=== PATIENT | female | born 1965 | race Hispanic/Latino ===

== ENCOUNTER 2017-04-12 16:41 | Inpatient (IN) | payer BC, OTHER ==
[2017-04-12] MEDS ORDERED: Sodium Chloride 0.9% 1,000 ML IV ONE (18:53)
[2017-04-12 19:20] LABS: BASO # 0.1 K/uL (0.0-0.2); BASO % 0.5 % (0.0-2.0); EOS # 0.2 K/uL (0.0-0.7); EOS % 1.8 % (0.0-4.0); HEMOGLOBIN 14.9 g/dL (11.0-16.0); LYMPH # 2.5 K/uL (1.0-4.3); LYMPH % 20.6 % (20.0-40.0); MEAN CELL VOLUME 90.8 fL (81.0-99.0); MEAN CORPUSCULAR HEMOGLOBIN 30.4 pg (27.0-31.0); MEAN CORPUSCULAR HGB CONC 33.4 g/dL (33.0-37.0); MEAN PLATELET VOLUME 8.6 fL (7.2-11.7); MONO # 0.7 K/uL (0.0-0.8); NEUT # 8.7 K/uL (1.8-7.0); NEUT % 71.1 % (50.0-75.0); RBC 4.92 Mil/uL (3.80-5.20); RED CELL DISTRIBUTION WIDTH 14.1 % (11.5-14.5); WHITE BLOOD COUNT 12.3 K/uL (4.8-10.8)
[2017-04-12 19:30] LABS: ALB/GLOB RATIO 1.1 (1.0-2.1); ALBUMIN 4.3 g/dL (3.5-5.0); ALT/SGPT 22 U/L (9-52); AST/SGOT 18 U/L (14-36); BLOOD UREA NITROGEN 10 mg/dL (7-17); CALCIUM 8.9 mg/dl (8.6-10.4); GFR AFRICAN-AMERICAN > 60; GFR NON-AFRICAN AMERICAN > 60
--- NOTE | 2017-04-12 20:32 | CT ---
EXAM: CT Head Without Intravenous Contrast CLINICAL HISTORY: 51 years old, female; Signs and symptoms; Dizziness; Additional info: Dizziness. Headache. TECHNIQUE: Axial computed tomography images of the head/brain without intravenous contrast. All CT scans at this facility use one or more dose reduction techniques, viz.: automated exposure control; ma/kV adjustment per patient size (including targeted exams where dose is matched to indication; i.e. head); or iterative reconstruction technique. COMPARISON: No relevant prior studies available. FINDINGS: Brain: No intracranial hemorrhage. No mass. Few scattered foci of decreased attenuation within periventricular/subcortical white matter. No definite edema. Ventricles: No hydrocephalus. Bones/joints: No acute fracture. Soft tissues: Unremarkable. Sinuses: Scattered minimal mucosal thickening. Mastoid air cells: No mastoid effusion. Orbits: Unremarkable as visualized. IMPRESSION: 1. Nonspecific white matter changes. Acute infarction may be CT occult within first 24 hours. If a focal deficit persists, consider followup CT or MRI for further evaluation. 2. Incidental/non-acute findings are described above.
[2017-04-12] MEDS ORDERED: Potassium Chloride 20 mEq ER Tab PO STA (21:18)
[2017-04-12] MEDS ORDERED: Potassium Chloride 20 mEq ER Tab PO ONE (21:34)
--- NOTE | 2017-04-12 22:15 | C.PDOC ---
Time Seen by Provider: 04/12/17 18:00 Chief Complaint (Nursing): Dizziness/Lightheaded History Per: Patient, Family Onset/Duration Of Symptoms: Days, Waxing/Waning, Persistent Current Symptoms Are (Timing): Still Present Associated Symptoms Preceding Syncopal Episode: Vertigo Worse With Change In Head Position Fall Associated With With Symptoms: No Severity: Moderate Additional History Per: Prior Records - Symptoms Of CVA Recent Head Trauma: No Past Medical History Reviewed: Historical Data, Nursing Documentation, Vital Signs Vital Signs: Last Vital Signs Temp 98.1 F 04/12/17 19:55 Pulse 85 04/12/17 19:55 Resp 14 04/12/17 19:55 BP 105/66 04/12/17 19:55 Pulse Ox 98 04/12/17 22:18 - Medical History PMH: HTN Family History: States: Unknown Family Hx - Social History Hx Alcohol Use: No Hx Substance Use: No Review Of Systems Except As Marked, All Systems Reviewed And Found Negative. Constitutional: Negative for: Fever, Weakness Eyes: Negative for: Vision Change ENT: Negative for: Ear Pain, Ear Discharge Cardiovascular: Negative for: Chest Pain Respiratory: Negative for: Shortness of Breath Gastrointestinal: Positive for: Nausea, Vomiting. Negative for: Abdominal Pain , Diarrhea Musculoskeletal: Negative for: Back Pain Skin: Negative for: Rash Neurological: Positive for: Headache (occipital), Dizziness. Negative for: Weakness, Numbness, Seizures Physical Exam - Physical Exam Appears: Non-toxic, No Acute Distress Skin: Normal Color, Warm, Dry, No Rash Head: Atraumatic, Normacephalic Eye(s): bilateral: PERRL, Other (Nystagmus) Ear(s): Bilateral: Normal Neck: Normal ROM, Supple Cardiovascular: Rhythm Regular Respiratory: Normal Breath Sounds, No Accessory Muscle Use Gastrointestinal/Abdominal: Soft, No Tenderness Back: No CVA Tenderness Extremity: Normal ROM Neurological/Psych: Oriented x3, Normal Speech, Normal Motor, Normal Sensation Gait: Unable To Assess ED Course And Treatment - Laboratory Results Result Diagrams: 04/12/17 19:15 04/12/17 19:15 Interpretation Of Abnormal: Mild hypokalemia O2 Sat by Pulse Oximetry: 98 Pulse Ox Interpretation: Normal - CT Scan/US CT head Other Rad Studies (CT/US): Read By Radiologist, Radiology Report Reviewed CT/US Interpretation: IMPRESSION: 1. Nonspecific white matter changes. Acute infarction may be CT occult within. first 24 hours. If a focal deficit persists, consider followup CT or MRI for. further evaluation. 2. Incidental/ non-acute findings are described above. Progress Note: After meds and observation, pt is still symptomatic and unable to ambulate with a steady gait. Progress - Interventions Interventions:: Observation, Intravenous fluid - Medications Administered Oral: Other (Meclizine) Intravenous: Antiemetic - Data Reviewed Data Reviewed: Lab, Diagnostic imaging, Old records - Patient Status Patient status: Partially improved - Continuity of Care Discussed patient case with:: Patient, Family-HIPPA compliant, ED Nurse, PMD - Patient Plan Patient Plan: Admission Disposition Discussed With Dr.: Gabriel Underwood (PMD) Comment: He wants to admit her to the hospital on his service for further evaluation and treatment. He wants to consult Dr. Giovani Rodriguez for neurology. Doctor Will See Patient In The: Hospital Counseled Patient/Family Regarding: Studies Performed, Diagnosis - Disposition Disposition: HOSPITALIZED Disposition Time: 23:00 Condition: FAIR - Clinical Impression Clinical Impression: Constant vertigo
[2017-04-13] MEDS: Dextrose 5%/0.45% NS 1,000 ML IV SCH ×3 (01:30→21:00)
[2017-04-13 01:45] VITALS: RESP 20
[2017-04-13] MEDS: Enoxaparin 40 mg Syringe SC SCH (11:00)
--- NOTE | 2017-04-13 11:47 | CP.PCM.PN ---
Subjective - Date & Time of Evaluation Date of Evaluation: 04/13/17 Time of Evaluation: 11:46 - Subjective Subjective: feels better.seen by dr malloy.normal carotids. Objective - Vital Signs/Intake and Output Vital Signs (last 24 hours): Temp Pulse Resp BP Pulse Ox 98.8 F 80 20 126/82 96 04/13/17 08:12 04/13/17 08:12 04/13/17 08:12 04/13/17 08:12 04/13/17 08:12 Intake and Output: 04/13/17 04/13/17 06:59 18:59 Intake Total 550 Balance 550 - Medications Medications: Current Medications Acetaminophen (Tylenol 325mg Tab) 650 mg PO BID PRN PRN Reason: Pain, moderate (4-7) Last Admin: 04/13/17 01:42 Dose: 650 mg Amlodipine Besylate (Norvasc) 5 mg PO DAILY [facility] Last Admin: 04/13/17 09:01 Dose: 5 mg Enoxaparin Sodium (Lovenox) 40 mg SC DAILY [facility] Last Admin: 04/13/17 11:00 Dose: 40 mg Dextrose/Sodium Chloride (Dextrose 5%/0.45% Ns 1000 Ml) 1,000 mls @ 100 mls/hr IV .Q10H [facility] Last Admin: 04/13/17 11:04 Dose: 100 mls/hr Meclizine HCl (Antivert) 25 mg PO TID PRN PRN Reason: Dizziness Last Admin: 04/13/17 09:01 Dose: 25 mg Ondansetron HCl (Zofran Inj) 4 mg IVP Q8 PRN PRN Reason: Nausea/Vomiting Pneumococcal Polyvalent Vaccine (Pneumovax 23 Vaccine) 0.5 ml SC .ONCE ONE Stop: 04/15/17 10:01 - Labs Labs: 04/12/17 19:15 04/12/17 19:15 - Constitutional Appears: No Acute Distress - Eye Exam Eye Exam: Normal appearance - ENT Exam ENT Exam: Mucous Membranes Moist - Respiratory Exam Respiratory Exam: Clear to Ausculation Bilateral - Cardiovascular Exam Cardiovascular Exam: REGULAR RHYTHM - GI/Abdominal Exam GI & Abdominal Exam: Soft - Neurological Exam Neurological Exam: Alert, Oriented x3 Assessment and Plan - Assessment and Plan (Free Text) Assessment: will obtain abdominal ultrasound,vomiting ++.lbs are ok.check k
[2017-04-13 11:53] LABS: ALB/GLOB RATIO 1.1 (1.0-2.1); ALBUMIN 3.8 g/dL (3.5-5.0); ALT/SGPT 21 U/L (9-52); AST/SGOT 17 U/L (14-36); BLOOD UREA NITROGEN 10 mg/dL (7-17); CALCIUM 8.3 mg/dl (8.6-10.4); GFR AFRICAN-AMERICAN > 60; GFR NON-AFRICAN AMERICAN > 60
[2017-04-13] MEDS ORDERED: Gadodiamide 287 MG/ML VIAL (15ML) IV ONE (12:27)
--- NOTE | 2017-04-13 12:44 | VASCLAB ---
PROCEDURE: HISTORY: persistent vertigo COMPARISON: None available. TECHNIQUE: Grayscale and duplex Doppler evaluation of the cervical carotid and vertebral arteries were performed. The common carotid, carotid bifurcations and cervical Internal Carotid Artery (ICA) and proximal External Carotid Artery (ECA) were evaluated. The vertebral arteries were evaluated for gross patency and flow direction. Report prepared by Eron Montanez, BS, RVT FINDINGS: RIGHT CAROTID ARTERIES: 1. Common Carotid Artery: No significant focal plaque formation of the right common carotid artery. Maximum Peak Systolic velocity: 75 cm/sec: End-diastolic velocity 25 cm/sec. 2. Carotid Bifurcation: plaque formation. Maximum Peak Systolic velocity: 74 cm/sec: End-diastolic velocity 26 cm/sec. 3. Internal Carotid Artery: Plaque description: 3.1. Proximal Segment: Peak systolic velocity 78 cm/sec: End-diastolic velocity 29 cm/sec - % stenosis 0-15% 3.2. Middle Segment: Peak systolic velocity 47 cm/sec: End-diastolic velocity 21 cm/sec - % stenosis 0-15% 3.3. Distal Segment: Peak systolic velocity 54 cm/sec: End-diastolic velocity 23 cm/sec - % stenosis 0-15% 4. External Carotid Artery: No significant focal plaque formation. Peak systolic velocity 71 cm/sec 5. ICA/CCA Ratio: 1.0 LEFT CAROTID ARTERIES: 1. Common Carotid Artery: No significant focal plaque formation of the left common carotid artery. Maximum Peak Systolic velocity: 84 cm/sec: End-diastolic velocity 21 cm/sec. 2. Carotid Bifurcation: plaque formation. Maximum Peak Systolic velocity: 57 cm/sec: End-diastolic velocity 17 cm/sec. 3. Internal Carotid Artery: Plaque description: 3.1. Proximal Segment: Peak systolic velocity 86 cm/sec: End-diastolic velocity 30 cm/sec - % stenosis 0-15% 3.2. Middle Segment: Peak systolic velocity 61 cm/sec: End-diastolic velocity 24 cm/sec - % stenosis 0-15% 3.3. Distal Segment: Peak systolic velocity 84 cm/sec: End-diastolic velocity 29 cm/sec - % stenosis 0-15% 4. External Carotid Artery: No significant focal plaque formation. Peak systolic velocity 81 cm/sec 5. ICA/CCA Ratio: 1.0 VERTEBRAL ARTERIES: 1. Right Vertebral Artery: The right vertebral artery flow direction is antegrade. 2. Left Vertebral Artery: The left vertebral artery flow direction is antegrade. OTHER FINDINGS: 1. Right Brachial Blood pressure: 134 mmHg. 2. Left Brachial Blood pressure: 126 mmHg. IMPRESSION: RIGHT: Duplex scan does not suggest hemodynamically significant stenosis of the right extracranial carotid arteries. LEFT: Duplex scan does not suggest hemodynamically significant stenosis of the left extracranial carotid arteries.
--- NOTE | 2017-04-13 13:07 | CON ---
DATE: NEUROLOGY CONSULTATION REASON FOR CONSULTATION: Dizziness. HISTORY OF PRESENT ILLNESS: The patient is a 51-year-old female who has been asked for evaluation of dizziness. The patient started experiencing dizziness on April 04. As she was coming down the stairs, she started getting dizzy, which is described as spinning sensation associated with vomiting. She denied any focal weakness in arms or legs. She went to the emergency room where she was evaluated, blood pressure was controlled and she was sent home. She saw her primary care physician a few days ago and was given meclizine. She has been taking it as needed. She did not have any severe dizziness until yesterday, when again she started experiencing severe dizziness, which is described as spinning sensation associated with vomiting. She did not have any focal weakness in arms or legs. She denies any loss of hearing or ringing in the ears. When she turns, her head suddenly or sometimes when she moves it off the bed, she gets dizzy. Denies any focal weakness in arms or legs. Denies any loss of vision. REVIEW OF SYSTEMS: Positive for dizziness. Denies any headache, chest pain, shortness of breath, abdominal pain, constipation, diarrhea, dysuria, pyuria, cough or sputum production. PAST MEDICAL HISTORY: Includes hypertension. MEDICATIONS AT HOME: Included amlodipine and meclizine. ALLERGIES: NO KNOWN DRUG ALLERGIES. SOCIAL HISTORY: Denies smoking, use of alcohol, or illicit drugs. FAMILY HISTORY: Reviewed and noncontributory to the case. PHYSICAL EXAMINATION: GENERAL: The patient is a middle-aged and pleasant female, lying on the bed, in no acute distress. VITAL SIGNS: Blood pressure is 126/82, heart rate is 80 per minute, breathing at a rate of 16 per minute, temperature is 98.8 degrees Fahrenheit. HEENT: Head is normocephalic and atraumatic. NECK: Supple. There are no carotid bruits. LUNGS: Clear. CARDIOVASCULAR SYSTEM: S1, S2 audible. No murmurs. ABDOMEN: Soft, nontender. Bowel sounds present. NEUROLOGIC: Mental status: Patient is awake, alert; oriented to time, place and person. Speech is fluent. Naming and repetition is normal. Memory and cognition are intact. Cranial nerves: Pupils are 3 mm bilaterally reactive to light. Visual kohli are full. Extraocular movements are intact. There is no facial asymmetry. Palate is upgoing bilaterally and tongue is midline. Motor Examination: Tone is normal. Power is 5/5 bilaterally in all extremities. Reflexes +2 and symmetrical. Plantars are downgoing bilaterally. Cerebellar Examination: [id number] shows no dysmetria. Gait is deferred at the moment. Sensory examination: Intact to soft touch and pinprick bilaterally. LABORATORY DATA: Reviewed. Shows WBC of 12.3, hemoglobin of 14.9, hematocrit 44.7 and platelets of 502,000. Sodium is 138, potassium 3.1, chloride 101, carbon dioxide 23, BUN of 10, creatinine of 0.8 and glucose of 81. She had a CT scan of the head done, which is negative for any acute intracranial pathology. IMPRESSION: Dizziness, which appears to be secondary to labyrinthine dysfunction, possibly vestibular neuronitis. RECOMMENDATIONS: 1. The patient to have MRI of the brain without contrast. 2. The patient also to have an electroencephalogram. 3. The patient to be continued on meclizine. 4. I will also add low dose of lorazepam 0.5 mg twice a day to see if that helps her dizziness. 5. The patient to have physical therapy for balance gait. 6. The patient is advised to increase activity as she tolerates. 7. Please continue supportive care and other treatment. Thank you for the opportunity to participate in the care of this patient. Ovidio Rodriguez MD
--- NOTE | 2017-04-13 14:31 | MRI ---
PROCEDURE: MRI brain dated 04/13/2017 HISTORY: Persistent vertigo COMPARISON: Comparison made with CT scan brain dated 04/12/2017. TECHNIQUE: Multiplanar, multisequence MR images of the brain were obtained with and without intravenous contrast enhancement. FINDINGS: HEMORRHAGE: No acute parenchymal, subarachnoid or extra-axial hemorrhage. No evidence of hemosiderin deposition identified on gradient echo weighted sequence. DWI: No evidence of an acute or early subacute infarction seen on diffusion imaging. . BRAIN PARENCHYMA: . Minor slightly confluent nonenhancing prolonged T2 signal changes seen within perifrontal horn white matter likely representing chronic sequela of small vessel disease. . Additionally, there are multiple of small round low-attenuation foci seen scattered about deep and subcortical white matter as well as both basal nuclei. Changes most likely represent minor chronic sequela of small vessel disease however differential diagnosis would include sequela of old trauma, migraine headaches, infectious/inflammatory etiologies. Atypical presentation of a demyelinating disease process would be less likely in the absence of a pertinent clinical history however not completely excluded. . Note also made of a tiny focus of increased T2 signal in the right cerebral peduncle which is seen only on axial T2 sequence which could represent dilated perivascular space noted tiny chronic lacune not completely excluded. Ventricular and sulcal size are within range of normal for this patient's stated age. ENHANCEMENT: There is a faint somewhat linear/cylindrical blush like area of enhancement in the region of the right forceps major that is of uncertain etiology however could conceivably represent a small vascular lesion such is a capillary telangiectasia or possibly an atypical developmental venous anomaly. (See axial post-contrast image 10-11). Ventricles No obstructive hydrocephalus. CRANIUM: There are no gross calvarial abnormalities are identified. . ORBITS: Orbits and contents grossly unremarkable. PARANASAL SINUSES/MASTOIDS: Visualized paranasal and mastoid air complexes are clear. VASCULAR SYSTEM: The visualized major vascular flow voids at skull base patent. OTHER FINDINGS: None . IMPRESSION: No acute intracranial hemorrhage or infarct. . There is a faint at somewhat linear/cylindrical area of enhancement in the right forceps major that is of uncertain etiology ; rule out small vascular lesion such as capillary telangiectasia or possibly an atypical DVA -venous angioma Minor confluent periventricular white matter changes with multiple more discrete focal areas of nonenhancing increased T2 signal scattered about the deep and subcortical white matter both cerebral hemispheres. Changes may represent mild chronic sequela of small vessel disease. See above discussion for additional details and differential diagnostic considerations
--- NOTE | 2017-04-13 14:31 | US ---
HISTORY: vomiting, abd pain COMPARISON: None available. TECHNIQUE: Sonographic evaluation of the abdomen. FINDINGS: LIVER: Measures 16.8 cm in sagittal dimension. Echogenic liver may be seen in setting of hepatic parenchymal disease or fatty infiltration. 2.9 x 2.3 x 2.7 cm anechoic avascular lesion within the left hepatic lobe appears consistent with a cyst. The main portal vein appears patent with normal directional flow. No intrahepatic bile duct dilatation. GALLBLADDER: No gallstones. No gallbladder wall thickening. Negative sonographic Mcduffie's sign as assessed by the material manager. COMMON BILE DUCT: Measures 2 mm. PANCREAS: Not well visualized. RIGHT KIDNEY: Measures 11.0 x 4.7 x 4.5 cm. No obstructing calculus or hydronephrosis identified. LEFT KIDNEY: Measures 11.1 x 4.8 x 4.7 cm. No obstructing calculus or hydronephrosis identified. SPLEEN: Measures approximately 14 cm. AORTA: Limited views appear unremarkable. IVC: Limited views appear unremarkable. OTHER FINDINGS: None. IMPRESSION: Left hepatic lobe cyst. Echogenic liver may be seen in setting of hepatic parenchymal disease or fatty infiltration.
[2017-04-14] MEDS: Dextrose 5%/0.45% NS 1,000 ML IV SCH ×2 (08:00→09:44)
[2017-04-14] MEDS: Enoxaparin 40 mg Syringe SC SCH (09:44)
--- NOTE | 2017-04-14 11:07 | PN ---
DATE: NEUROLOGY PROGRESS NOTE SUBJECTIVE: The patient is lying on the bed, in no acute distress. She is feeling better than yesterday; however, still getting some dizzy when she tries to walk. PHYSICAL EXAMINATION: VITAL SIGNS: Her blood pressure is 130/86, heart rate is 79 per minute, breathing at a rate of 16 per minute, temperature of 98.3 degrees Fahrenheit. HEENT: Head is normocephalic, atraumatic. NECK: Supple. There are no carotid bruits. LUNGS: Clear. CARDIOVASCULAR SYSTEM: S1 and S2 are audible. No murmurs. ABDOMEN: Soft and nontender. Bowel sounds are present. NEUROLOGY: Mental status: The patient is awake, alert, oriented to time, place, person. Speech is fluent. Naming and repetition are normal. Memory and cognition are intact. Cranial nerve examination: Pupils are 3 mm bilaterally reactive to light. Visual kohli are full. Extraocular movements are intact. There is no facial asymmetry. Palate is upgoing bilaterally and tongue is midline. Motor examination: Tone is normal. Power is 5/5 bilaterally in all extremities. Plantars downgoing bilaterally. LABORATORY DATA: Labs reviewed. MRI of the brain: No acute intracranial hemorrhage or infarct. There is a faint somewhat linear/cylindrical area of enhancement in the right forceps major that is of uncertain etiology. Rule out small vessel lesion. Suggest capillary telangiectasia or possible atypical venous angioma. Minor confluent periventricular white matter changes. IMPRESSION: Dizziness, which appears to be secondary to labyrinthine dysfunction, possible vestibular neuronitis. RECOMMENDATION: 1. The patient had an electroencephalogram. We will follow up on that. 2. The patient to be continued on meclizine. 3. We will consider restarting lorazepam if dizziness does not respond to meclizine. 4. If the patient's dizziness remains stable and she is able to get up and walk, then she may be discharged with outpatient followup. Thank you for the opportunity to participate in the care of this patient. Ovidio Rodriguez MD
[2017-04-14 16:01] VITALS: BP 144/89; PULSE 71; TEMP 98.8
[2017-04-14 16:02] VITALS: O2SAT 98
--- NOTE | 2017-04-14 17:44 | CP.PCM.PN ---
Subjective - Date & Time of Evaluation Date of Evaluation: 04/14/17 Time of Evaluation: 17:42 - Subjective Subjective: headaches & constipation Objective - Vital Signs/Intake and Output Vital Signs (last 24 hours): Temp Pulse Resp BP Pulse Ox 98.8 F 71 20 144/89 98 04/14/17 15:15 04/14/17 15:15 04/14/17 15:15 04/14/17 15:15 04/14/17 15:29 Intake and Output: 04/14/17 04/14/17 06:59 18:59 Intake Total 1000 1160 Balance 1000 1160 - Medications Medications: Current Medications Acetaminophen (Tylenol 325mg Tab) 650 mg PO Q6 PRN PRN Reason: Headache Last Admin: 04/14/17 16:37 Dose: 650 mg Amlodipine Besylate (Norvasc) 5 mg PO DAILY [facility] Last Admin: 04/14/17 09:44 Dose: 5 mg Docusate Sodium (Colace) 100 mg PO TID PRN PRN Reason: Constipation Enoxaparin Sodium (Lovenox) 40 mg SC DAILY [facility] Last Admin: 04/14/17 09:44 Dose: 40 mg Dextrose/Sodium Chloride (Dextrose 5%/0.45% Ns 1000 Ml) 1,000 mls @ 100 mls/hr IV .Q10H [facility] Last Admin: 04/14/17 09:44 Dose: 100 mls/hr Meclizine HCl (Antivert) 25 mg PO TID PRN PRN Reason: Dizziness Last Admin: 04/14/17 09:44 Dose: 25 mg Ondansetron HCl (Zofran Inj) 4 mg IVP Q8 PRN PRN Reason: Nausea/Vomiting Pneumococcal Polyvalent Vaccine (Pneumovax 23 Vaccine) 0.5 ml SC .ONCE ONE Stop: 04/15/17 10:01 - Labs Labs: 04/12/17 19:15 04/13/17 11:24 - Constitutional Appears: No Acute Distress - Eye Exam Eye Exam: Normal appearance - Neck Exam Neck Exam: Normal Inspection - Respiratory Exam Respiratory Exam: Clear to Ausculation Bilateral - Cardiovascular Exam Cardiovascular Exam: REGULAR RHYTHM - GI/Abdominal Exam GI & Abdominal Exam: Soft - Extremities Exam Extremities Exam: absent: Pedal Edema - Neurological Exam Neurological Exam: Alert, Oriented x3 Assessment and Plan - Assessment and Plan (Free Text) Assessment: normal abdominal ultrasound & mri. ent eval.d/c home
--- NOTE | 2017-04-15 04:24 | CON ---
DATE: 04/14/2017 REQUESTING PHYSICIAN: Gabriel Underwood MD REASON FOR CONSULTATION: Vertigo. HISTORY OF PRESENT ILLNESS: This is a 51-year-old female with a 11-day history of dizziness with vertigo, is on and off, [id number] in intensity, lasted for minutes to hours. There is no hearing loss or ringing in the ear. PAST MEDICAL HISTORY: As noted in the chart by me. MEDICATIONS: As noted in the chart by me. ALLERGIES: NO KNOWN DRUG ALLERGIES. PHYSICAL EXAMINATION: HEAD: Atraumatic, normocephalic. FACE: Good facial movements bilaterally. CONSTITUTIONAL: Well fed, well nourished. COMMUNICATION: Communicates well and appropriately. EXTERNAL NOSE AND EARS: No masses. No lesions. No erythema. No edema. INTERNAL NOSE: Deviated septum. No masses. No lesions. No erythema. No edema. ORAL CAVITY AND OROPHARYNX: No masses. No lesions. No erythema. No edema. EARS: TM intact with no fluid behind it. NECK: Supple. THYROID: No thyromegaly. No goiter. LYMPH NODES: No lymphadenopathy of the neck. ASSESSMENT: 1. Dizziness. 2. Vertigo. 3. Deviated septum. PLAN: Follow up as an outpatient for VNG. Werner Gomez MD
--- NOTE | 2017-04-15 08:07 | DS ---
HISTORY OF PRESENT ILLNESS: This is a 52-year-old female, who was brought in with headaches, not feeling well, vomited several times, and had a near-syncope. She came to the hospital. Routine labs were acceptable. MRI of the head was unremarkable. CT of the head was unremarkable. Abdominal ultrasound was unremarkable. She was treated conservatively. She was advised to follow up with ENT doctor as an outpatient. The patient was seen by Dr. Rodriguez during hospitalization. FINAL DIAGNOSES: Probably syncope-related ear problems, hypertension, abdominal pain, and vomiting. Gabriel Underwood MD
[2017-04-15] MEDS ORDERED: Pneumococcal 23-Valent Vaccine SC ONE (10:00)
--- NOTE | 2017-04-15 10:27 | EEG ---
DATE: This is an EEG report. INTRODUCTION: This is a digitally recorded EEG monitoring using the standard EEG montages. BACKGROUND RHYTHM: The EEG shows a background activity of 9 Hz to 10 Hz alpha activity in the parietooccipital region. The EEG activity is bilaterally symmetrical and synchronous. There is attenuation of the background activity on eye opening. Drowsiness was noted by slowing of the background activity. ABNORMAL POTENTIALS: No spike, sharp waves or focal slowing was seen. PHOTIC STIMULATION AND HYPERVENTILATION: Photic stimulation did not reveal any abnormality. Hyperventilation was not performed. IMPRESSION: Normal electroencephalogram. No epileptiform activity is seen in this electroencephalogram recording. Ovidio Rodriguez MD
== END 2017-04-14 19:34 | disposition home or self-care (01) | DRG 149 ==
LOC: C.ER 16:41 → C.9E 23:12 → C.3T 23:47 → C.9E 04-13 00:10 → C.3T 04-13 00:24
PROVIDERS: ADMIT Internal Medicine Cardiovascular Disease; ATTEND Internal Medicine Cardiovascular Disease
DX: H83.2X9 Labyrinthine dysfunction, unspecified ear (principal); I10 Essential (primary) hypertension; H81.20 Vestibular neuronitis, unspecified ear; J34.2 Deviated nasal septum; K59.00 Constipation, unspecified

== ENCOUNTER 2018-07-14 09:24 | Outpatient (CLI) | payer BC | END 2018-07-14 09:25 | disposition home or self-care (01) | LOC: C.VASC 09:24 ==

== ENCOUNTER 2018-07-19 15:42 | Outpatient (CLI) | payer BC | END 2018-07-19 15:43 | disposition home or self-care (01) | LOC: C.CTH 15:42 ==

== ENCOUNTER 2018-07-28 07:49 | Outpatient (CLI) | payer BC | END 2018-07-28 07:50 | disposition home or self-care (01) | LOC: C.CARD 07:49 | DX: R06.02 Shortness of breath (principal); I10 Essential (primary) hypertension ==

== ENCOUNTER 2018-08-03 08:05 | Outpatient (CLI) | payer BC | END 2018-08-03 08:06 | disposition home or self-care (01) | LOC: C.LAB 08:05 ==

== ENCOUNTER 2018-08-04 08:12 | Outpatient (CLI) | payer BC | END 2018-08-04 08:13 | disposition home or self-care (01) | LOC: C.PAT 08:12 | DX: I73.9 Peripheral vascular disease, unspecified (principal) ==

== ENCOUNTER 2018-08-09 07:00 | Observation (INO) | payer BC ==
[2018-08-03 08:55] VITALS: BMI 30.9
[2018-08-09] MEDS ORDERED: HEPARIN NS IV ONE (07:48)
[2018-08-09] MEDS ORDERED: Iodixanol 320 MG/ML 200 ML BOTTLE IV ONE (07:48)
[2018-08-09] MEDS ORDERED: ceFAZolin 1 gm in NS 2 GM/200 ML BAG IVPB ONE (07:49)
[2018-08-09] MEDS ORDERED: Midazolam 2 MG/2 ML VIAL ONE ×3 (08:43→10:33)
[2018-08-09] MEDS ORDERED: Lidocaine Hydrochloride 20 ML INJ ONE (08:47)
[2018-08-09] MEDS ORDERED: Propofol 10 mg/ml Inj (20 ML) ONE (08:48)
[2018-08-09] MEDS ORDERED: Lidocaine Hydrochloride 5 ML INJ ONE (08:48)
--- NOTE | 2018-08-09 11:25 | PCM.SURG1 ---
Surgeon's Initial Post Op Note - Surgeon's Notes Surgeon: Dr. Acosta Wheat Combine Driver: Talat [email or web address] Type of Anesthesia: IV Sedation Anesthesia Administered By: Dr. 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
[2018-08-09] MEDS ORDERED: Sodium Chloride 0.9% 500 ML IV ONE ×2 (12:28→14:01)
[2018-08-09] MEDS ORDERED: Sodium Chloride 0.9% 1,000 ML IV ONE (13:00)
--- NOTE | 2018-08-09 17:22 | RAD ---
Date of service: 08/09/2018 PROCEDURE: Intraoperative Fluoroscopy. HISTORY: DVT FINDINGS: Fluoroscopic assistance was provided for arteriography. Total fluoroscopic time (continuous mode) utilized during the procedure 1358.2 seconds. Total exam DLP: 756.33 (mGy). Please refer to the operative report from YONATAN Rodriguez.
[2018-08-09] MEDS: Lactated Ringer's 1,000 ML IV SCH (18:00)
[2018-08-09 19:33] VITALS: RESP 20
[2018-08-09] MEDS ORDERED: Cyproheptadine 2 mg Tab PO SCH (22:00)
[2018-08-10] MEDS: Lactated Ringer's 1,000 ML IV SCH (02:13)
--- NOTE | 2018-08-10 06:31 | OP ---
PROCEDURE DATE: 08/09/2018 PREOPERATIVE DIAGNOSES: Ulceration of right fifth toe, aortic occlusion, bilateral common iliac artery disease. PROCEDURES: Aortofemoral angiogram with 2 punctures, right common femoral artery, left common femoral artery using ultrasound-guidance micropuncture technique. Then balloon angioplasty of the right common iliac artery and deployment of a 7 x 59 VBX stent in the right common iliac artery. At the end of the procedure, there was reservation flow of all collateral seen as well as preservation of both internal iliac arteries. We were unable to cross the lesion successfully, re-entering to the abdominal aorta. SURGEON: Elgin Acosta Jr., MD DESCRIPTION OF PROCEDURE: The patient was given local anesthesia using the ultrasound-guidance and micropuncture technique. The right common femoral artery was punctured. Under the fluoroscopic control, the guidewire was advanced centrally. With variety of maneuvers and manipulation, we eventually were able to pass the catheter into the infrarenal abdominal aorta. We then placed a 5-Ethiopian sheath here, placed a catheter and carried out the angiogram. Due to some limitations with the equipment, we were unable to obtain sequential films all the way down, but we did eventually get these pictures isolated and these show that there was an occlusion of the infrarenal aorta at the bifurcation with reconstitution of the right common iliac artery above its bifurcation. Then, on the left side, the artery was completely occluded with reconstitution down to the level of the bifurcation. Below this, the common femoral artery and superficial femoral arteries were widely patent. It was difficult to obtain pictures on the right side below the knee, but it appeared that the posterior tibial artery was occluded in its distal segment and the dorsalis pedis was the major vessel into the foot. The patient was given intravenous antibiotics, local anesthesia using ultrasound guidance and micropuncture technique. The right common femoral was punctured. We then similar measure on the other side. Despite a variety of wires, techniques and maneuvers, we were unable to re-enter in the lumen on the left side. We then abandoned this and deployed in a 7 x 59 VBX stent on the right side from the distal aorta to the level of the common iliac artery bifurcation. This was with excellent cosmetic results. We attempted to deploy the Perclose device in the right groin which was unsuccessful. We then checked with ultrasound there was great pulsatile flow throughout this region. On the left side, we removed the 5-Ethiopian sheath and did not use the closure device. Pictures obtained. OPERATION CARRIED OUT: Aortofemoral angiogram with 2 punctures and then right common iliac artery VBX stent. Unable to cross the left-sided lesion. Afrin was given during the procedure and was not reversed until the end. Elgin Acosta Jr., MD
[2018-08-10 08:04] VITALS: BP 115/77; PULSE 87; TEMP 99.4; O2SAT 94
[2018-08-10 08:27] LABS: BASO # 0.1 K/uL (0.0-0.2); BASO % 0.7 % (0.0-2.0); EOS # 0.2 K/uL (0.0-0.7); EOS % 2.5 % (0.0-4.0); LYMPH # 1.1 K/uL (1.0-4.3); LYMPH % 11.8 % (20.0-40.0); MEAN CORPUSCULAR HEMOGLOBIN 30.9 pg (27.0-31.0); MEAN CORPUSCULAR HGB CONC 33.9 g/dL (33.0-37.0); MEAN PLATELET VOLUME 8.5 fL (7.2-11.7); MONO # 0.6 K/uL (0.0-0.8); MONO % 6.9 % (0.0-10.0); NEUT # 6.9 K/uL (1.8-7.0); NEUT % 78.1 % (50.0-75.0); RBC 4.2 Mil/uL (3.80-5.20); RED CELL DISTRIBUTION WIDTH 13.7 % (11.5-14.5); WHITE BLOOD COUNT 8.9 K/uL (4.8-10.8)
[2018-08-10 08:30] LABS: ALB/GLOB RATIO 1.2 (1.0-2.1); ALBUMIN 3.5 g/dL (3.5-5.0); ALT/SGPT 24 U/L (9-52); AST/SGOT 22 U/L (14-36); BLOOD UREA NITROGEN 7 mg/dL (7-17); CALCIUM 8.9 mg/dl (8.6-10.4); GFR NON-AFRICAN AMERICAN > 60
--- NOTE | 2018-08-10 08:46 | CP.PCM.PN ---
Subjective - Date & Time of Evaluation Date of Evaluation: 08/10/18 Time of Evaluation: 08:45 - Subjective Subjective: dc home right leg warmer with good dopplers Objective - Vital Signs/Intake and Output Vital Signs (last 24 hours): Temp Pulse Resp BP Pulse Ox 99.4 F 87 20 115/77 94 L 08/10/18 07:00 08/10/18 07:00 08/10/18 07:00 08/10/18 07:00 08/10/18 08:28 - Medications Medications: Current Medications Amlodipine Besylate (Norvasc) 5 mg PO DAILY [facility] Aspirin (Ecotrin) 81 mg PO DAILY [facility] Clopidogrel Bisulfate (Plavix) 75 mg PO DAILY [facility] Cyproheptadine HCl (Periactin) 2 mg PO HS [facility] Last Admin: 08/09/18 22:06 Dose: 2 mg Enoxaparin Sodium (Lovenox) 40 mg SC DAILY [facility] Lactated Ringer's (Lactated Ringer's) 1,000 mls @ 125 mls/hr IV .Q8H [facility] Last Admin: 08/10/18 02:13 Dose: 125 mls/hr Ondansetron HCl (Zofran Inj) 4 mg IVP Q4 PRN PRN Reason: nausea Last Admin: 08/09/18 17:30 Dose: 4 mg Tramadol HCl (Ultram) 50 mg PO Q6 PRN PRN Reason: Pain, moderate (4-7) Last Admin: 08/09/18 21:21 Dose: 50 mg - Labs Labs: 08/10/18 08:08 08/10/18 08:08
[2018-08-10] MEDS ORDERED: Enoxaparin 40 mg Syringe SC SCH (10:00)
== END 2018-08-10 09:40 | disposition home or self-care (01) ==
LOC: C.SDS 07:00 → C.9S 11:31 → C.6T 18:41
PROVIDERS: ADMIT Surgery Vascular Surgery; ATTEND Surgery Vascular Surgery
DX: I73.9 Peripheral vascular disease, unspecified (principal); I77.1 Stricture of artery; L97.519 Non-pressure chronic ulcer of other part of right foot with unspecified severity
CPT/HCPCS: 36415; 37221; 80053; 85025; G0378; J0690; J1644; J1650; J2250; J2405; J2704; J3010; J7030; J7120; Q9966